=== PATIENT | male | born 1950 | race Hispanic/Latino ===

== ENCOUNTER → 2017-06-16 | Outpatient (CLI) | payer OTHER ==
[~2017-06-16] MED LIST: AMIO200T2 PO; ASPI-1012 PO; CALC0.253 PO; CLOP75TA32 PO; FOLI0.8T22 PO; FURO40TA5 PO; LANTUS SQ; LISI-613 PO; METO25TA6 PO; PRAM0.25 PO; SAXA5TAB PO; SIMV10TA6 PO
== END | disposition home or self-care (01) ==
LOC: RAH 11:11
PROVIDERS: ATTEND Internal Medicine
DX: I50.9 Heart failure, unspecified (principal); I51.7 Cardiomegaly
CPT/HCPCS: 71020